=== PATIENT | female | born 1985 | race Caucasian/White ===

== ENCOUNTER 2021-08-18 14:19 | Emergency (ER) | payer SELFPAY ==
[~2021-08-18] VITALS: Ht 160 cm; Wt 70.0 kg
[2021-08-18 14:47] VITALS: BP 131/80
[2021-08-18] MEDS ORDERED: ACETAMINOPHEN 325MG TABLET PO ONE (15:00)
[2021-08-18] MEDS ORDERED: TOPUD MT (16:37)
== END 2021-08-18 18:17 | disposition home or self-care (01) ==
LOC: ER 14:19
DX: S52.502A Unspecified fracture of the lower end of left radius, initial encounter for closed fracture (principal); W01.0XXA Fall on same level from slipping, tripping and stumbling without subsequent striking against object, initial encounter; Y93.89 Activity, other specified; Y92.89 Other specified places as the place of occurrence of the external cause; Y99.8 Other external cause status
CPT/HCPCS: 29125; 73110; 99283